=== PATIENT | female | born 1965 | race Caucasian/White ===

== ENCOUNTER 2018-05-17 19:40 | Inpatient (IN) ==
[2018-05-17] MEDS ORDERED: Ampicillin/Sulbactam Inj 3 GM in Sodium Chloride 0.9% Inj 100 ML IV.SIG ONE (19:52)
[2018-05-17] MEDS ORDERED: Diphtheria/Tetanus/Pertussis Vaccine Inj 0.5 ML Syringe IM ONE (19:52)
--- NOTE | 2018-05-17 20:02 | ED ---
HPI General Chief Complaint: Animal Bite Stated Complaint: EVAC/Dog Bite Time Seen by Provider: 05/17/18 19:50 History of Present Illness HPI narrative: Patient was attacked by her own dog sambull boxer mix. Her daughter apparently bit her in her forearm bilaterally she has a bracelet that she was wearing with the metal piece embedded deep into the flesh of her forearm and she has got multiple punctures and lacerations bilaterally on both arms she apparently is very intoxicated and appears to be either alcohol induced personality disorder because she is aggressive she is belligerent she is verbally abusive to staff she is not redirectable she is unaware of her medical situation and the severity of the risk of injury and tendon injury I will need to sedate her so we can manage and treat her limb threatening injuries I am giving her Haldol Benadryl Ativan and if that does not work we will be giving her ketamine as well she needs to be managed medically as well as then irrigated possibly admitted for debridement in the OR unable to evaluate her at all at this time because of her agitation and uncooperativeness ROS and HPI are difficult to assess because she is not cooperative all information is given to us by the paramedics Related Data Previous Rx's Medication Instructions Recorded amoxicillin-pot clavulanate 1 tab PO Q12H #28 tab 05/20/18 [Augmentin] folic acid 1 mg PO DAILY #30 tab 05/20/18 nxfbjzbm-fvyf-UZ-calcium-mins 1 tab PO DAILY #30 tab 05/20/18 [Thera M Plus (ferrous fumarat)] wblgtxlh-fozegswrkRn-stcpzrluR 1 applicatio TOPICAL BID #60 g 05/20/18 [Triple Antibiotic] oxycodone-acetaminophen 1 tab PO Q4H PRN #12 tab 05/20/18 thiamine HCl (vitamin B1) 100 mg PO DAILY #30 tab 05/20/18 Allergies Allergy/AdvReac Type Severity Reaction Status Date / Time No Known Allergies Allergy Unverified 05/18/18 01:06 Review of Systems ROS Unobtainable unobtainable due to mental condition and other (agitated agressive verbally abusive intoxicated ) PMFSH Social History Social History Substance History: No History of Abuse Second Hand Smoke Exposure: No Smoking Status: Current every day smoker Tobacco Type: E-Cigarettes How Often Do You Have a Drink Containing Alcohol: 2 to 3 times a week Recent Travel in [facility] within the Last 8 Weeks: No Recent Out of Country Travel within the Last 8 Weeks: No Immunization History Tetanus Immunization: <5 Years Hx Influenza Vaccine This Season: No Exam Narrative Exam Narrative: GENERAL: pt agitated agressive and uncooperative for exam needs medical restraint due to limb threatening injury to left arm open wounds with dog bite and FB SKIN 3 laceation to left arm with metal braclets imbedded into the dorsum of left forearm HEAD: Atraumatic. Normocephalic. EYES: Pupils equal and round. No scleral icterus. No injection or drainage. ENT: No nasal bleeding or discharge. Mucous membranes pink and moist. NECK: Trachea midline. No JVD. CARDIOVASCULAR: Regular rate and rhythm. RESPIRATORY: No accessory muscle use. Clear to auscultation. Breath sounds equal bilaterally. GASTROINTESTINAL: Abdomen soft, non-tender, nondistended. Hepatic and splenic margins not palpable. MUSCULOSKELETAL: Extremities left hand has 3 cm lac to dorsum with tendon exposure , left dorsum of mid forearm has metal braclet embeeded into skin stuck inside volar aspect has 4 cm tare forearm, Right foream has 7 cm lac to right proximla froearm extensor surface irregular NEUROLOGICAL: Awake and alert. No obvious cranial nerve deficits. Motor grossly within normal limits. Five out of 5 muscle strength in the arms and legs. Normal speech. PSYCHIATRIC: Appropriate mood and affect; insight and judgment normal. Course Initial Documented Vital Signs Temperature 98.7 F 05/17/18 19:49 Pulse Rate 102 H 05/17/18 19:49 Respiratory Rate 20 05/17/18 19:49 Blood Pressure 178/85 H 05/17/18 19:49 Pulse Oximetry 96 05/17/18 19:49 Last Documented Vital Signs Temperature 98.2 F 05/20/18 12:00 Pulse Rate 78 05/20/18 12:00 Respiratory Rate 16 05/20/18 12:00 Blood Pressure 170/86 H 05/20/18 12:00 Pulse Oximetry 96 05/20/18 12:00 Medical Decision Making [facility] Narrative Medical decision making narrative: pt is in need of medical sedation and her limb threatening injuries require immediate intervention impaled metal bracelet left arm dorsum tare wounds no irrigation, I attempted to remove metal embedded bracelet it seem stuck in bone or interosseum . I call doctor Tee she agrees to take pt to the OR to repir hand and remove impaled bracelet , ancef tetanus I repair the 7 cm laceration to the right arm but hand and FB left cleaned and covered with xeroform vasaline impregnated gauze the cling wrapped and admitted for OR Leyda ancef IV given teteanus up dated , Rabies not indicated, pt sedated with multiple meds before she is calm enough to treat Differential Diagnosis Differential Diagnosis: dog bite vs impaled arm from bracelet embedded , mutilated arms from repeated bites , also intoxicated agitated etoh induced psychotic disorder Lab Data Result diagrams: 05/20/18 07:49 05/20/18 07:49 Lab Results 05/18/18 05/18/18 05/18/18 Range/Units 01:45 01:45 01:45 WBC 18.6 H (4.0-11.0) th/mm3 RBC 4.31 (4.00-5.30) mil/mm3 Hgb 13.2 (11.6-15.3) gm/dL Hct 40.0 (35.0-46.0) % MCV 92.9 (80.0-100.0) fL MCH 30.5 (27.0-34.0) pg MCHC 32.9 (32.0-36.0) % RDW 13.7 (11.6-17.2) % Plt Count 364 (150-450) th/mm3 MPV 7.0 (7.0-11.0) fL Neut % (Auto) 89.5 H (16.0-70.0) % Lymph % (Auto) 5.5 L (9.0-44.0) % [place] % (Auto) 4.7 (0.0-8.0) % Eos % (Auto) 0.0 (0.0-4.0) % Baso % (Auto) 0.3 (0.0-2.0) % Neut # (Auto) 16.6 H (1.8-7.7) th/mm3 Lymph # (Auto) 1.0 (1.0-4.8) th/mm3 [place] # (Auto) 0.9 (0.0-0.9) th/mm3 Eos # (Auto) 0.0 (0.0-0.4) th/mm3 Baso # (Auto) 0.1 (0.0-0.2) th/mm3 WBC Differential . Differential Comment Auto diff final PT 10.4 (9.8-11.6) sec INR 1.0 Ratio Sodium 147 H (136-145) meq/L Potassium 3.9 (3.5-5.1) meq/L Chloride 112 H (98-107) meq/L Carbon Dioxide 21.7 (21.0-32.0) meq/L Anion Gap 13 (5-15) meq/L BUN 10 (7-18) mg/dL Creatinine 0.67 (0.50-1.00) mg/dL Estimated GFR Greater than 89 (>89) mL/min POC Glucose (68-110) mg/dl Random Glucose 117 H (74-106) mg/dL Calcium 7.8 L (8.5-10.1) mg/dL Phosphorus (2.5-4.9) mg/dL Magnesium (1.5-2.5) mg/dL Total Bilirubin 0.4 (0.2-1.0) mg/dL AST 27 (15-37) U/L ALT 28 (10-53) U/L Alkaline Phosphatase 114 (45-117) U/L Total Protein 7.4 (6.4-8.2) g/dL Albumin 3.8 (3.4-5.0) g/dL TSH (0.358-3.740) uIU/mL Free T4 (0.76-1.46) ng/dL Vancomycin Trough (5.0-10.0) mcg/mL 05/19/18 05/19/18 05/19/18 Range/Units 03:01 07:47 11:55 WBC (4.0-11.0) th/mm3 RBC (4.00-5.30) mil/mm3 Hgb (11.6-15.3) gm/dL Hct (35.0-46.0) % MCV (80.0-100.0) fL MCH (27.0-34.0) pg MCHC (32.0-36.0) % RDW (11.6-17.2) % Plt Count (150-450) th/mm3 MPV (7.0-11.0) fL Neut % (Auto) (16.0-70.0) % Lymph % (Auto) (9.0-44.0) % [place] % (Auto) (0.0-8.0) % Eos % (Auto) (0.0-4.0) % Baso % (Auto) (0.0-2.0) % Neut # (Auto) (1.8-7.7) th/mm3 Lymph # (Auto) (1.0-4.8) th/mm3 [place] # (Auto) (0.0-0.9) th/mm3 Eos # (Auto) (0.0-0.4) th/mm3 Baso # (Auto) (0.0-0.2) th/mm3 WBC Differential Differential Comment PT (9.8-11.6) sec INR Ratio Sodium (136-145) meq/L Potassium (3.5-5.1) meq/L Chloride (98-107) meq/L Carbon Dioxide (21.0-32.0) meq/L Anion Gap (5-15) meq/L BUN (7-18) mg/dL Creatinine (0.50-1.00) mg/dL Estimated GFR (>89) mL/min POC Glucose 113 H 109 97 (68-110) mg/dl Random Glucose (74-106) mg/dL Calcium (8.5-10.1) mg/dL Phosphorus (2.5-4.9) mg/dL Magnesium (1.5-2.5) mg/dL Total Bilirubin (0.2-1.0) mg/dL AST (15-37) U/L ALT (10-53) U/L Alkaline Phosphatase (45-117) U/L Total Protein (6.4-8.2) g/dL Albumin (3.4-5.0) g/dL TSH (0.358-3.740) uIU/mL Free T4 (0.76-1.46) ng/dL Vancomycin Trough (5.0-10.0) mcg/mL 05/19/18 05/19/18 05/20/18 Range/Units 13:49 15:45 07:49 WBC 14.5 H 11.0 (4.0-11.0) th/mm3 RBC 3.96 L 3.51 L (4.00-5.30) mil/mm3 Hgb 12.4 10.9 L (11.6-15.3) gm/dL Hct 37.2 33.0 L (35.0-46.0) % MCV 93.7 93.9 (80.0-100.0) fL MCH 31.3 31.0 (27.0-34.0) pg MCHC 33.4 33.0 (32.0-36.0) % RDW 13.5 13.6 (11.6-17.2) % Plt Count 320 302 (150-450) th/mm3 MPV 8.0 7.4 (7.0-11.0) fL Neut % (Auto) 80.5 H 76.8 H (16.0-70.0) % Lymph % (Auto) 13.5 16.7 (9.0-44.0) % [place] % (Auto) 5.4 5.5 (0.0-8.0) % Eos % (Auto) 0.2 0.7 (0.0-4.0) % Baso % (Auto) 0.4 0.3 (0.0-2.0) % Neut # (Auto) 11.7 H 8.5 H (1.8-7.7) th/mm3 Lymph # (Auto) 2.0 1.8 (1.0-4.8) th/mm3 [place] # (Auto) 0.8 0.6 (0.0-0.9) th/mm3 Eos # (Auto) 0.0 0.1 (0.0-0.4) th/mm3 Baso # (Auto) 0.1 0.0 (0.0-0.2) th/mm3 WBC Differential . . Differential Comment Auto diff final Auto diff final PT (9.8-11.6) sec INR Ratio Sodium (136-145) meq/L Potassium (3.5-5.1) meq/L Chloride (98-107) meq/L Carbon Dioxide (21.0-32.0) meq/L Anion Gap (5-15) meq/L BUN (7-18) mg/dL Creatinine (0.50-1.00) mg/dL Estimated GFR (>89) mL/min POC Glucose (68-110) mg/dl Random Glucose (74-106) mg/dL Calcium (8.5-10.1) mg/dL Phosphorus (2.5-4.9) mg/dL Magnesium (1.5-2.5) mg/dL Total Bilirubin (0.2-1.0) mg/dL AST (15-37) U/L ALT (10-53) U/L Alkaline Phosphatase (45-117) U/L Total Protein (6.4-8.2) g/dL Albumin (3.4-5.0) g/dL TSH (0.358-3.740) uIU/mL Free T4 (0.76-1.46) ng/dL Vancomycin Trough 5.8 (5.0-10.0) mcg/mL 05/20/18 05/20/18 05/20/18 Range/Units 07:49 07:49 07:49 WBC (4.0-11.0) th/mm3 RBC (4.00-5.30) mil/mm3 Hgb (11.6-15.3) gm/dL Hct (35.0-46.0) % MCV (80.0-100.0) fL MCH (27.0-34.0) pg MCHC (32.0-36.0) % RDW (11.6-17.2) % Plt Count (150-450) th/mm3 MPV (7.0-11.0) fL Neut % (Auto) (16.0-70.0) % Lymph % (Auto) (9.0-44.0) % [place] % (Auto) (0.0-8.0) % Eos % (Auto) (0.0-4.0) % Baso % (Auto) (0.0-2.0) % Neut # (Auto) (1.8-7.7) th/mm3 Lymph # (Auto) (1.0-4.8) th/mm3 [place] # (Auto) (0.0-0.9) th/mm3 Eos # (Auto) (0.0-0.4) th/mm3 Baso # (Auto) (0.0-0.2) th/mm3 WBC Differential Differential Comment PT 9.5 L (9.8-11.6) sec INR 0.9 Ratio Sodium 144 (136-145) meq/L Potassium 3.3 L (3.5-5.1) meq/L Chloride 109 H (98-107) meq/L Carbon Dioxide 23.0 (21.0-32.0) meq/L Anion Gap 12 (5-15) meq/L BUN 8 (7-18) mg/dL Creatinine 0.56 (0.50-1.00) mg/dL Estimated GFR Greater than 89 (>89) mL/min POC Glucose (68-110) mg/dl Random Glucose 82 (74-106) mg/dL Calcium 7.9 L (8.5-10.1) mg/dL Phosphorus 1.8 L (2.5-4.9) mg/dL Magnesium 2.0 (1.5-2.5) mg/dL Total Bilirubin 0.6 (0.2-1.0) mg/dL AST 15 (15-37) U/L ALT 17 (10-53) U/L Alkaline Phosphatase 87 (45-117) U/L Total Protein 6.2 L D (6.4-8.2) g/dL Albumin 2.6 L (3.4-5.0) g/dL TSH 3.750 H (0.358-3.740) uIU/mL Free T4 1.33 (0.76-1.46) ng/dL Vancomycin Trough (5.0-10.0) mcg/mL Imaging Data Radiologist's impression: Forearm X-Ray 05/17/18 00:00 CONCLUSION: Soft tissue injury. Fracture for review at the base of the ulnar styloid. The age of this deformity is not known. Forearm X-Ray 05/17/18 19:50 CONCLUSION: Soft tissue injury. Wrist X-Ray 05/18/18 00:00 CONCLUSION: Postsurgical changes as above. Discharge Plan Discharge Disposition Patient Disposition: 01 Discharge Home Discharge Condition Condition: Good Discharge Order Discharge Orders: Discharge Order (Routine); Ordered 05/20/18 Ordered By: Jose Alonzo Hand Surgery Clear for Discharge (Routine); Ordered 05/18/18 Ordered By: Lisa Oliveira Discharge Details Anticipated Discharge Date: 05/20/18 Physicians Team ED Provider: Tanvir Renteria Primary Care Provider: UNKNOWN, Attending Provider: Jose Alonzo Other Providers: Lisa Oliveira Status ED Status: Left Department Discharge Information Discharge Date/Time: 05/18/18 02:53
[2018-05-17] MEDS ORDERED: Haloperidol Inj 5 MG/ML Ampul IV.PUSH ONE (20:03)
[2018-05-17] MEDS ORDERED: Ketamine Inj 200 MG/20 ML Vial IV.PUSH ONE (20:05)
[2018-05-17] MEDS ORDERED: Ketamine Inj 50 MG/5 ML Syringe IV.PUSH SCH (20:15)
[2018-05-17] MEDS ORDERED: Lidocaine 2%/Epinephrine 1:100,000 30 ML MDV INFILTRATN ONE (20:31)
[2018-05-17] MEDS ORDERED: Lidocaine 1%/Epinephrine 1:100,000 Inj 20 ML Vial INFILTRATN ONE (20:34)
--- NOTE | 2018-05-17 21:19 | XR ---
EXAM DATE: 05/17/2018 9:14 PM EDT AGE/SEX: 52 years / Female INDICATIONS: Right forearm lacerations CLINICAL DATA: This is the patient's initial encounter. Patient reports that signs and symptoms have been present for 1 day and indicates a pain score of Nonresponsive. MEDICAL/SURGICAL HISTORY: Non-responsive. Non-responsive. COMPARISON: No prior exams available for comparison. FINDINGS: No fracture is seen. The elbow and wrist joints are normally aligned. There appears to be a soft tiss ue injury at the proximal forearm with air seen in the posterior proximal soft tissues. No foreign masha dy is seen. CONCLUSION: Soft tissue injury. Electronically signed by: Zac Méndez MD 05/17/2018 9:18 PM EDT
--- NOTE | 2018-05-17 22:13 | XR ---
EXAM DATE: 05/17/2018 10:07 PM EDT AGE/SEX: 52 years / Female INDICATIONS: Left Forearm Laceration due to Dog Bite, Bracelet embedded into wrist CLINICAL DATA: This is the patient's initial encounter. Patient reports that signs and symptoms have been present for 1 day and indicates a pain score of Nonresponsive. MEDICAL/SURGICAL HISTORY: Non-responsive. Non-responsive. COMPARISON: No prior exams available for comparison. FINDINGS: There is a defect seen at the base of the ulnar styloid. The age of this deformity is not known. Ther e is soft tissue swelling seen in the mid and distal anterior lateral forearm. There is small amount of air seen in the soft tissues. The elbow and wrist joints are all aligned. CONCLUSION: Soft tissue injury. Fracture for review at the base of the ulnar styloid. The age of this deformity is not known. Electronically signed by: Zac Méndez MD 05/17/2018 10:12 PM EDT
[2018-05-17] MEDS ORDERED: Clindamycin 600 mg/NS Premix 600 MG/50 ML PIGGYBACK IV.SIG ONE (22:32)
[2018-05-18] MEDS ORDERED: Morphine Inj 4 MG/ML Vial IV.PUSH ONE (00:25)
[2018-05-18] MEDS ORDERED: Ampicillin/Sulbactam Inj 3 GM in Sodium Chloride 0.9% Inj 100 ML IV.SIG ONE (01:09)
[2018-05-18] MEDS ORDERED: Acetaminophen 325 MG Tablet PO PRN (01:39)
[2018-05-18] MEDS ORDERED: Haloperidol Inj 5 MG/ML Ampul IV.PUSH PRN (01:39)
[2018-05-18] MEDS ORDERED: LORazepam 1 MG Tablet PO PRN (01:39)
[2018-05-18] MEDS ORDERED: Temazepam 15 MG Capsule PO PRN (01:39)
[2018-05-18] MEDS ORDERED: Bisacodyl 10 MG Supp RECTAL PRN (01:39)
[2018-05-18] MEDS ORDERED: Vancomycin Consult Pharmacy 1 EACH OTHER SCH (01:39)
[2018-05-18] MEDS: Sod Chloride 0.9% Inj 1,000 ML IV.CONT SCH ×3 (01:52→21:01)
[2018-05-18 01:55] LABS: Baso # (Auto) 0.1 th/mm3 (0.0-0.2); Baso % (Auto) 0.3 % (0.0-2.0); Hemoglobin 13.2 gm/dL (11.6-15.3); Lymph % (Auto) 5.5 % (9.0-44.0); Mean Corpuscular HGB Conc 32.9 % (32.0-36.0); Mean Corpuscular Hemoglobin 30.5 pg (27.0-34.0); Mean Corpuscular Volume 92.9 fL (80.0-100.0); Mono # (Auto) 0.9 th/mm3 (0.0-0.9); Mono % (Auto) 4.7 % (0.0-8.0); Neut # (Auto) 16.6 th/mm3 (1.8-7.7); Neut % (Auto) 89.5 % (16.0-70.0); Platelet Count 364 th/mm3 (150-450); Red Blood Count 4.31 mil/mm3 (4.00-5.30); Red Cell Distribution Width 13.7 % (11.6-17.2); White Blood Count 18.6 th/mm3 (4.0-11.0)
[2018-05-18 02:07] LABS: Prothrombin Time 10.4 sec (9.8-11.6)
[2018-05-18 02:18] LABS: Alkaline Phosphatase 114 U/L (45-117); Total Protein 7.4 g/dL (6.4-8.2)
[2018-05-18 02:22] LABS: Alanine Aminotransferase 28 U/L (10-53); Albumin 3.8 g/dL (3.4-5.0); Anion Gap 13 meq/L (5-15); Aspartate Aminotransferase 27 U/L (15-37); Blood Urea Nitrogen 10 mg/dL (7-18); Calcium 7.8 mg/dL (8.5-10.1); Carbon Dioxide 21.7 meq/L (21.0-32.0); Chloride 112 meq/L (98-107); Glomerular Filtration Rate Greater Than 89 mL/min (>89); Glucose,Random 117 mg/dL (74-106); Potassium 3.9 meq/L (3.5-5.1); Sodium 147 meq/L (136-145)
--- NOTE | 2018-05-18 02:24 | P.HPIM ---
History of Present Illness Primary Care Physician: UNKNOWN History of Present Illness: This is a 52-year-old female with no significant PMH who presents the ER after dog bite to left forearm and hand. Patient is acutely intoxicated and belligerent on arrival, now calm after receiving Haldol and Ketamine. Pt was apparently bitten by her own dog, pitbull/boxer mix earlier this evening. Reports dog is up to date on vaccinations. On arrival, BP 178/85, HR 102, O2 sat 96% on RA, Afebrile. WBC 18.6. Chemistry pending. Forearm X-ray with soft tissue injury. On exam. pt noted to have laceration to left hand and metal bracelet embedded into left forearm at site of dog bite. Hand Sx consulted, plan for surgical intervention. - Diagnosis (1) Dog bite (2) Alcohol intoxication (3) Leukocytosis Inpatient Certification: I certify that the inpatient services were ordered in accordance with Medicare regulations governing the order. This includes certification that hospital inpatient services are reasonable and necessary and in the case of services not specified as inpatient-only under 42 CFR 419.22(n), that they are appropriately provided as inpatient services in accordance to with the 2-midnight benchmark under 43 CFR 412.3(e) Estimated Total Length of Stay (Days): 2 Plans for Post Hospital Care: Not yet determined Review of Systems All other systems reviewed negative except as stated in HPI PMFSH - History History Provided By: Patient - Tobacco History Second Hand Smoke Exposure: No Tobacco Use In Past 30 Days: Yes Smoking Status: Current every day smoker Tobacco Type: Cigarettes - Alcohol History How Often Do You Have a Drink Containing Alcohol: 2 to 3 times a week - Substance Use History Substance History: No History of Abuse - Travel History Recent Travel in the [place] Within the Last 8 Weeks: No Recent Travel Out of the Country Within the Last 8 Weeks: No - Immunization History Tetanus Immunization: <5 Years Hx Influenza Vaccine This Season: No Medications and Allergies Active Medications: Active Medications Acetaminophen (Tylenol) 650 mg PO Q4H PRN PRN Reason: Temp > 100.4 Al Hydroxide/Mg Hydroxide (Milk Of Magnesia Liq) 30 ml PO Q12H PRN PRN Reason: Mild Constipation Bisacodyl (Dulcolax Supp) 10 mg RECTAL DAILY PRN PRN Reason: SEVERE CONSITIPATION Flumazenil (Romazecon Inj) 0.2 mg IV.PUSH Q1M PRN PRN Reason: OVERSEDATION Folic Acid (Folic Acid) 1 mg PO DAILY [facility] Stop: 05/23/18 08:59 Haloperidol Lactate (Haldol Inj) 1 mg IV.PUSH Q15M PRN PRN Reason: for severe agitation Ampicillin Sodium/Sulbactam (Sodium 3 gm/ Sodium Chloride) 100 mls @ 200 mls/ hr IV.SIG Q6H [facility] Sodium Chloride (Ns Inj) 1,000 mls @ 100 mls/hr IV.CONT .Q10H [facility] Last Admin: 05/18/18 01:52 Dose: 100 mls/hr Pharmacy Profile Note (Vancomycin Consult Pharmacy) 0 mls @ 0 mls/hr OTHER UNSCH [facility] Vancomycin HCl 1,500 mg/ (Sodium Chloride) 515 mls @ 257.5 mls/hr IV.SIG ONCE ONE Stop: 05/18/18 04:29 Lactulose (Lactulose Liq) 30 ml PO DAILY PRN PRN Reason: SEVERE CONSITIPATION Lorazepam (Ativan) 1 mg PO Q4H PRN PRN Reason: for CIWA 8-10 Lorazepam (Ativan) 2 mg PO Q2H PRN PRN Reason: for CIWA 11-14 Lorazepam (Ativan Inj) 2 mg IV.PUSH Q2H PRN PRN Reason: for CIWA 11-14 Lorazepam (Ativan Inj) 2 mg IV.PUSH Q1H PRN PRN Reason: for CIWA 15-20 Lorazepam (Ativan Inj) 2 mg IV.PUSH Q15M PRN PRN Reason: for CIWA > 20 Lorazepam (Ativan Inj) 1 mg IV.PUSH Q4H PRN PRN Reason: for CIWA 8-10 Metoclopramide HCl (Reglan Inj) 5 mg IV.PUSH Q6HR PRN; Protocol PRN Reason: NAUSEA OR VOMITING Multivitamins/Minerals (Theragran-M) 1 tab PO DAILY [facility] Stop: 05/23/18 08:59 Senna/Docusate Sodium (Sydney-Colace) 1 tab PO BID [facility] Sennosides (Senokot) 17.2 mg PO Q12H PRN PRN Reason: Moderate Constipation Temazepam (Restoril) 15 mg PO HS PRN PRN Reason: INSOMNIA Thiamine HCl (Vitamin B1) 100 mg PO DAILY [facility] Allergies Allergy/AdvReac Type Severity Reaction Status Date / Time No Known Allergies Allergy Unverified 05/18/18 01:06 Home Medications Medication Instructions Recorded Confirmed Type No Known Home Medications 05/17/18 05/17/18 History Exam Vital signs: Vital Signs 05/17/18 19:49 05/17/18 20:30 05/17/18 21:43 Temperature 98.7 F Pulse Rate 102 H 119 H 90 Respiratory Rate 20 14 14 Blood Pressure 178/85 H 182/79 H 194/87 H Pulse Oximetry 96 90 L 98 05/18/18 00:44 Temperature Pulse Rate 85 Respiratory Rate 14 Blood Pressure 148/71 H Pulse Oximetry 97 Intake & Output 05/17/18 05/17/18 05/18/18 06:59 18:59 06:59 Intake Total 250 / 250 Balance 250 / 250 Weight 63.503 kg Intake: IV 250 / 250 Unasyn Inj 3 GM In NS Inj 100 100 / 100 ML @ 200 mls/hr IV.SIG ONCE ONE Rx#:[id number] Cleocin 600 mg/NS Premix 600 mg 50 / 50 In 50 ml @ 100 mls/hr IV.SIG ONCE ONE Rx#:[id number] Flagyl 500 MG Inj 100 ML @ 100 100 / 100 mls/hr IV.SIG ONCE ONE Rx#: [id number] Narrative: PE: GENERAL: Middle-aged white female in no acute distress, currently,. HEENT: PERRLA, EOMI. No scleral icterus or conjunctival pallor. No lid lag or facial droop. CARDIOVASCULAR: Regular rate and rhythm. No obvious murmurs to auscultation. No chest tenderness to palpation. RESPIRATORY: No obvious rhonchi or wheezing. Clear to auscultation. Breath sounds equal bilaterally. GASTROINTESTINAL: Abdomen soft, non-tender, nondistended. BS normal. MUSCULOSKELETAL: Extremities without clubbing, cyanosis, or edema. No obvious deformities. LUE w/ metal bracelet embedded into forearm, left hand laceration , significant swelling. Pulses intact. NEUROLOGICAL: Awake, alert and oriented x4. No focal neurologic deficits. Moving both upper and lower extremities spontaneously. Results - Labs CBC & Chem 7: 05/18/18 01:45 05/18/18 01:45 Labs: Short CBC 05/18/18 Range/Units 01:45 WBC 18.6 H (4.0-11.0) th/mm3 Hgb 13.2 (11.6-15.3) gm/dL Hct 40.0 (35.0-46.0) % Plt Count 364 (150-450) th/mm3 - Imaging Impressions Forearm X-Ray 05/17/18 00:00 CONCLUSION: Soft tissue injury. Fracture for review at the base of the ulnar styloid. The age of this deformity is not known. Forearm X-Ray 05/17/18 19:50 CONCLUSION: Soft tissue injury. Caprini VTE Risk Assessment Caprini VTE Risk Assessment: No/Low Risk (score <= 1) Caprini Risk Assessment Model: Point Value = 1 Point Value = 2 Point Value = 3 Point Value = 5 Age 41-60 Minor surgery BMI > 25 kg/m2 Swollen legs Varicose veins or History of unexplained or recurrent spontaneous Oral contraceptives or hormone replacement Sepsis (< 1 month) Serious lung disease, including pneumonia (< 1 month) Abnormal pulmonary function Acute myocardial infarction Congestive heart failure (< 1 month) History of inflammatory bowel disease Medical patient at bed rest Age 61-74 Arthroscopic surgery Major open surgery (> 45 min) Laparoscopic surgery (> 45 min) Malignancy Confined to bed (> 72 hours) Immobilizing plaster cast Central venous access Age >= 75 History of VTE Family history of VTE Factor V Leiden Prothrombin [id number] Lupus anticoagulant Anticardiolipin antibodies Elevated serum homocysteine Heparin-induced thrombocytopenia Other congenital or acquired thrombophilia Stroke (< 1 month) Elective arthroplasty Hip, pelvis, or leg fracture Acute spinal cord injury (< 1 month) Prophylaxis Regimen: Total Risk Factor Score Risk Level Prophylaxis Regimen 0-1 Low Early ambulation 2 Moderate Order ONE of the following: *Sequential Compression Device (SCD) *Heparin 5000 units SQ BID 3-4 Higher Order ONE of the following medications: *Heparin 5000 units SQ TID *Enoxaparin/Lovenox 40 mg SQ daily (WT < 150 kg, CrCl > 30 mL/min) *Enoxaparin/Lovenox 30 mg SQ daily (WT < 150 kg, CrCl > 10-29 mL/min) *Enoxaparin/Lovenox 30 mg SQ BID (WT < 150 kg, CrCl > 30 mL/min) AND/OR *Sequential Compression Device (SCD) 5 or more Highest Order ONE of the following medications: *Heparin 5000 units SQ TID (Preferred with Epidurals) *Enoxaparin/Lovenox 40 mg SQ daily (WT < 150 kg, CrCl > 30 mL/min) *Enoxaparin/Lovenox 30 mg SQ daily (WT < 150 kg, CrCl > 10-29 mL/min) *Enoxaparin/Lovenox 30 mg SQ BID (WT < 150 kg, CrCl > 30 mL/min) AND *Sequential Compression Device (SCD) Assessment and Plan - Assessment (1) Dog bite Code(s): W54.0XXA - Bitten by dog, initial encounter Status: Acute (2) Alcohol intoxication Code(s): F10.929 - Alcohol use, unspecified with intoxication, unspecified Status: Acute (3) Leukocytosis Code(s): D72.829 - Elevated white blood cell count, unspecified Status: Acute - Plan A/P: 1. Dog Bite: s/p dog bite by her dog, reports up to date on vaccinations, + left hand laceration w/ significant swelling and left forearm injury w/ metal bracelet embedded. X-ray w/ soft tissue injury, images reviewed by me. Hand Sx consulted, plan for surgical intervention. NPO, analgesics/antiemetics. Unasyn/Vanc, IVF for hydration. 2. Alcohol Intoxication: belligerent/uncooperative on arrival, now calm after Haldol/Ketamine, CIWA, Seizure Precautions, MVT/Thiamine/Folate replacement. 3. DVT Prophylaxis: SCD/Teds 4. Social work for d/c planning as needed. 5. Case discussed w/ ER physician at length, labs/records/imaging reviewed by me.
[2018-05-18] MEDS ORDERED: Vancomycin Inj 1,500 MG in Sodium Chlor 0.9% Inj 500 ML IV.SIG ONE (02:30)
[2018-05-18] MEDS: Multivitamin/Minerals Therapeutic Tablet PO SCH (08:30)
[2018-05-18] MEDS: Ampicillin/Sulbactam Inj 3 GM in Sodium Chloride 0.9% Inj 100 ML IV.SIG SCH ×3 (08:30→21:00)
[2018-05-18] MEDS: Folic Acid 1 MG Tablet PO SCH (08:30)
[2018-05-18] MEDS: Senna/Docusate Sodium 8.6/50 MG Tablet PO SCH ×2 (08:30→21:00)
[2018-05-18] MEDS ORDERED: Lidocaine PF 1% Inj 5 ML Syringe INFILTRATN ONE (12:00)
[2018-05-18] MEDS ORDERED: Neomycin/Polymyxin G.U. Irrigant 1 ML Ampul ONE (12:34)
[2018-05-18] MEDS ORDERED: Lidocaine PF 2% Inj 10 ML Ampul ONE ×2 (12:38→13:02)
[2018-05-18] MEDS ORDERED: fentaNYL Citrate Inj 100 MCG/2 ML Ampul ONE (13:37)
--- NOTE | 2018-05-18 14:19 | XR ---
EXAM DATE: 05/18/2018 2:06 PM EDT AGE/SEX: 52 years / Female INDICATIONS: Post op wrist surgery. Foreign body. CLINICAL DATA: This is the patient's initial encounter. Patient reports that signs and symptoms have been present for 1 day and indicates a pain score of 0/10. MEDICAL/SURGICAL HISTORY: None. None. COMPARISON: C, FOREARM LEFT 2V, 05/16/2018. . FINDINGS: Ulnar styloid fracture is present No foreign body is identified. Joint spaces are maintained. CONCLUSION: Postsurgical changes as above. Electronically signed by: Biju Emerson MD 05/18/2018 2:17 PM EDT
--- NOTE | 2018-05-18 14:54 | MB ---
cc: Lisa Oliveira MD DATE: 05/18/2018 REASON FOR CONSULTATION: Retained foreign body left wrist, as well as multiple dog bite lacerations left forearm, wrist, and hand. HISTORY OF PRESENT ILLNESS: Malou Armendariz is a 52-year-old right-hand dominant female who states that her dog bit bilateral arms yesterday evening. She was brought to the emergency room. She was intoxicated at the time. She had multiple wounds of her bilateral forearms. The emergency room, irrigated and closed the wounds on the right forearm. Her bracelet became lodged into her left wrist and was unable to be removed by the emergency room physician. She denied any paresthesias of the left hand. She reports diffuse pain over the left hand and upper extremity. She denies any prior problems to the left hand. PAST MEDICAL HISTORY: Unknown. PAST SURGICAL HISTORY: Unknown. SOCIAL HISTORY: The patient smokes daily. Significant alcohol use. Denies any drug use. PHYSICAL EXAMINATION: The patient is alert and oriented. Exam of left upper extremity shows good capillary refill to the fingers. The patient is able to flex and extend her fingers gently with pain. Compartments are soft and compressible. There are multiple lacerations over the left hand and left forearm, the largest being over the volar aspect of the left forearm, the dorsal aspect of the left hand over the 4th metacarpal, as well as retained metallic bracelet foreign body embedded in the left wrist with a laceration over the ulnar border of the left wrist. Sensation grossly intact in the median, ulnar and radial distribution. X-RAY: X-ray shows the retained foreign body over the left wrist. No evidence of acute fracture or dislocation. Possible old ulnar styloid fracture. ASSESSMENT AND PLAN: A 52-year-old female with multiple dog bite wounds to the bilateral upper extremities. The right upper extremity was repaired well by the emergency room. Again, there were several large wounds over the left forearm, as well as retained foreign body over the left wrist. The patient elected to proceed with surgical intervention. Risks were explained, which were not limited to wound complications, infection, paresthesias, pain, stiffness, need for additional surgeries and she elected to proceed at the earliest available time. Lisa Oliveira MD [facility]/TL , 01:43 PM , 02:52 PM SONIA
--- NOTE | 2018-05-18 15:06 | MP ---
cc: Lisa Oliveira MD DATE OF OPERATION: PREOPERATIVE DIAGNOSES: 1. Dog bite with multiple lacerations over left hand and forearm. 2. Retained foreign body, left wrist. POSTOPERATIVE DIAGNOSES: 1. Dog bite with multiple lacerations over left forearm, wrist, and hand. 2. Retained foreign body, left wrist. 3. Partial longitudinal laceration extensor tendon, left hand. PROCEDURES: 1. Removal of retained foreign body, left wrist. 2. Exploration of penetrating wounds, left hand and forearm. 3. Repair of partial laceration to the extensor tendon of the left ring finger. 4. Irrigation and debridement of open wounds including skin, subcutaneous tissue, muscle over the left forearm and left hand. 5. Complex closure of wounds measuring approximately 5 cm left forearm. SURGEON: Lisa Oliveira MD ANESTHESIA: General and local. TOURNIQUET TIME: 2 minutes at 200 mmHg. INDICATIONS FOR PROCEDURE: Malou Armendariz is a 52-year-old right-hand dominant female that sustained multiple lacerations on bilateral upper extremities from a dog bite and the right upper extremity was repaired in the emergency room. The patient was brought to the operating room for removal of the retained foreign body of the left wrist. She also elected to proceed with the exploration of the penetrating wounds, repair of any injured structures and she elected to proceed. Risks were explained, which were not limited to wound complications, infection, stiffness, pain, paresthesias, need for additional surgery and she elected to proceed. DESCRIPTION OF PROCEDURE: The patient was identified in the preoperative holding and the correct extremity was marked. The patient was taken to the operating room. Anesthesia was induced. Left upper extremity was prepped and draped in normal sterile fashion. The bracelet retained metallic foreign body was removed in its entirety without complication. This was confirmed under fluoroscopy. Next, the large wounds over the volar forearm, the ulnar side of the wrist and the dorsum of the hand were extended and explored. Irrigation and debridement was performed using antibiotic saline and rongeurs. There was no injury to any deep structures over the volar forearm or ulnar wrist. There was partial longitudinal laceration of the extensor tendon over the left ring finger, which was repaired with PDS. The remainder of the wounds were closed with Monocryl and Nylon. 2% lidocaine without epinephrine was used for local anesthesia. The patient was placed in a soft dressing and awoken from anesthesia without any complications. She will be discharged on antibiotics per the primary team. She should return to the emergency room for suture removal in approximately 2 weeks. Lisa Oliveira MD [facility]/KARISHMA , 01:47 PM , 03:04 PM SONIA
[2018-05-18] MEDS: Vancomycin Inj 750 MG in Sodium Chlor 0.9% Inj 250 ML IV.SIG SCH (17:25)
[2018-05-19] MEDS: Ampicillin/Sulbactam Inj 3 GM in Sodium Chloride 0.9% Inj 100 ML IV.SIG SCH ×4 (01:56→21:16)
[2018-05-19] MEDS: Vancomycin Inj 750 MG in Sodium Chlor 0.9% Inj 250 ML IV.SIG SCH ×2 (04:17→17:12)
[2018-05-19] MEDS: Folic Acid 1 MG Tablet PO SCH (08:43)
[2018-05-19] MEDS: Multivitamin/Minerals Therapeutic Tablet PO SCH (08:44)
[2018-05-19] MEDS: Senna/Docusate Sodium 8.6/50 MG Tablet PO SCH ×2 (08:47→21:24)
[2018-05-19] MEDS: Sod Chloride 0.9% Inj 1,000 ML IV.CONT SCH ×2 (11:40→21:15)
--- NOTE | 2018-05-19 12:33 | P.PNIM ---
Subjective Interval history: This is a 52-year-old female with no significant PMH who presents the ER after dog bite to left forearm and hand. Patient is acutely intoxicated and belligerent on arrival, now calm after receiving Haldol and Ketamine. Pt was apparently bitten by her own dog, pitbull/boxer mix earlier this evening. Reports dog is up to date on vaccinations. On arrival, BP 178/85, HR 102, O2 sat 96% on RA, Afebrile. WBC 18.6. Chemistry pending. Forearm X-ray with soft tissue injury. On exam. pt noted to have laceration to left hand and metal bracelet embedded into left forearm at site of dog bite. Hand Sx consulted, plan for surgical intervention. 05-19 HAD SURGERY WITH HAD SURGERY ON LEFT HAND YESTERDAY CONTINUE ANTIBIOTICS DW RN AND PT AND CM CONTINUE PT AND OT WILL NEED FOLLOW UP Physical Exam Vital signs: Vital Signs 05/18/18 13:30 05/18/18 13:45 05/18/18 14:00 Temperature 97.9 F 98.5 F Pulse Rate 97 H 81 84 Respiratory Rate 22 20 19 Blood Pressure 146/90 H 158/72 H 153/68 H Pulse Oximetry 93 L 93 L 96 05/18/18 20:00 05/19/18 00:00 05/19/18 04:00 Temperature 98.6 F 99.3 F 98.3 F Pulse Rate 74 78 73 Respiratory Rate 18 18 18 Blood Pressure 154/67 H 141/63 H 135/63 Pulse Oximetry 93 L 93 L 95 05/19/18 08:00 Temperature 98.2 F Pulse Rate 68 Respiratory Rate 16 Blood Pressure 155/69 H Pulse Oximetry 93 L Intake & Output 05/18/18 05/19/18 05/19/18 18:59 06:59 18:59 Intake Total 2150 / 2150 1440 / 1440 1350 / 1350 Output Total 20 / 20 800 / 800 Balance 2130 / 2130 640 / 640 1350 / 1350 Weight 64.8 kg Intake: IV 1450 / 1450 1200 / 1200 1350 / 1350 NS Inj 1,000 ML @ 100 mls/hr IV 1000 / 1000 1000 / 1000 1000 / 1000 .CONT .Q10H MANNY Rx#:[id number] Unasyn Inj 3 GM In NS Inj 100 200 / 200 200 / 200 100 / 100 ML @ 200 mls/hr IV.SIG Q6H MANNY Rx#:[id number] Vancomycin Inj 750 MG In NS Inj 250 / 250 250 / 250 250 ML @ 250 mls/hr IV.SIG Q12H MANNY Rx#:[id number] Oral 0 / 0 240 / 240 Anesthesia Amount 700 / 700 Output: Urine 0 / 0 800 / 800 Estimated Blood Loss 20 / 20 Other: # Voids 4 # Bowel Movements 1 0 Narrative: GENERAL: AWAKE ALERT AND ORIENTED X3 TALKATIVE AND SOMEWHAT COOPERATIVE--WANTS TO GO HOME SKIN: Warm and dry.LEFT AND RIGHT HANDS ARE DRESSED- MULTIPLE SMALL WOUNDS ON LOWER EXTREMITIES HEAD: Atraumatic. Normocephalic. EYES: Pupils equal and round. No scleral icterus. No injection or drainage. ENT: No nasal bleeding or discharge. Mucous membranes pink and moist. NECK: Trachea midline. No JVD. CARDIOVASCULAR: Regular rate and rhythm. S1, S2 NO S3 OR SR RESPIRATORY: No accessory muscle use. Clear to auscultation. Breath sounds equal bilaterally. GASTROINTESTINAL: Abdomen soft, non-tender, nondistended. Hepatic and splenic margins not palpable. MUSCULOSKELETAL: Extremities without clubbing, cyanosis, or edema. No obvious deformities. BL HANDS DRESSED NEUROLOGICAL: Awake and alert. No obvious cranial nerve deficits. Motor grossly within normal limits. 4 out of 5 muscle strength in the arms 5/5 IN LEGSand legs. Normal speech. PSYCHIATRIC: Appropriate mood and affect; insight and judgment normal. Results - Labs CBC & Chem 7: 05/18/18 01:45 05/18/18 01:45 Laboratory Results - last 24 hr 05/19/18 05/19/18 05/19/18 03:01 07:47 11:55 POC Glucose 113 H 109 97 - Imaging Impressions Wrist X-Ray 05/18/18 00:00 CONCLUSION: Postsurgical changes as above. - Procedures - 1. Dog bite with multiple lacerations over left hand and forearm. 2. Retained foreign body, left wrist. POSTOPERATIVE DIAGNOSES: 1. Dog bite with multiple lacerations over left forearm, wrist, and hand. 2. Retained foreign body, left wrist. 3. Partial longitudinal laceration extensor tendon, left hand. PROCEDURES: 1. Removal of retained foreign body, left wrist. 2. Exploration of penetrating wounds, left hand and forearm. 3. Repair of partial laceration to the extensor tendon of the left ring finger. 4. Irrigation and debridement of open wounds including skin, subcutaneous tissue, muscle over the left forearm and left hand. 5. Complex closure of wounds measuring approximately 5 cm left forearm. SURGEON: Lisa Oliveira MD ANESTHESIA: General and local. TOURNIQUET TIME: 2 minutes at 200 mmHg. INDICATIONS FOR PROCEDURE: Malou Armendariz is a 52-year-old right-hand dominant female that sustained multiple lacerations on bilateral upper extremities from a dog bite and the right upper extremity was repaired in the emergency room. The patient was brought to the operating room for removal of the retained foreign body of the left wrist. She also elected to proceed with the exploration of the penetrating wounds, repair of any injured structures and she elected to proceed. Risks were explained, which were not limited to wound complications, infection, stiffness, pain, paresthesias, need for additional surgery and she elected to proceed. DESCRIPTION OF PROCEDURE: The patient was identified in the preoperative holding and the correct extremity was marked. The patient was taken to the operating room. Anesthesia was induced. Left upper extremity was prepped and draped in normal sterile fashion. The bracelet retained metallic foreign body was removed in its entirety without complication. This was confirmed under fluoroscopy. Next, the large wounds over the volar forearm, the ulnar side of the wrist and the dorsum of the hand were extended and explored. Irrigation and debridement was performed using antibiotic saline and rongeurs. There was no injury to any deep structures over the volar forearm or ulnar wrist. There was partial longitudinal laceration of the extensor tendon over the left ring finger, which was repaired with PDS. The remainder of the wounds were closed with Monocryl and Nylon. 2% lidocaine without epinephrine was used for local anesthesia. The patient was placed in a soft dressing and awoken from anesthesia without any complications. She will be discharged on antibiotics per the primary team. She should return to the emergency room for suture removal in approximately 2 weeks. Lisa Oliveira MD Assessment and Plan - Assessment (1) Dog bite Code(s): W54.0XXA - Bitten by dog, initial encounter Status: Acute (2) Alcohol intoxication Code(s): F10.929 - Alcohol use, unspecified with intoxication, unspecified Status: Acute (3) Leukocytosis Code(s): D72.829 - Elevated white blood cell count, unspecified Status: Acute - Plan 1. Dog Bite: s/p dog bite by her dog, reports up to date on vaccinations, + left hand laceration w/ significant swelling and left forearm injury w/ metal bracelet embedded. X-ray w/ soft tissue injury, images reviewed by me. Hand Sx consulted, plan for surgical intervention. NPO, analgesics/antiemetics. Unasyn/Vanc, IVF for hydration. 2. Alcohol Intoxication: belligerent/uncooperative on arrival, now calm after Haldol/Ketamine, CIWA, Seizure Precautions, MVI/Thiamine/Folate replacement. 3. DVT Prophylaxis: SCD/Teds 4. Social work for d/c planning as needed. WILL NEED HELP WITH ANTIBIOTICS HOLD DC TODAY CONTINUE ON CURRENT ANTIBIOTICS HOPEFULLY SWITCH TO PO ANTIBIOTICS TOMORROW Code Status: FULL CODE Discussed Condition With: RN AND PT AND CM Discharge Planning: NEXT 24 TO 48 HOURS
[2018-05-19 14:36] LABS: Baso # (Auto) 0.1 th/mm3 (0.0-0.2); Baso % (Auto) 0.4 % (0.0-2.0); Eos % (Auto) 0.2 % (0.0-4.0); Hematocrit 37.2 % (35.0-46.0); Hemoglobin 12.4 gm/dL (11.6-15.3); Lymph % (Auto) 13.5 % (9.0-44.0); Mean Corpuscular HGB Conc 33.4 % (32.0-36.0); Mean Corpuscular Hemoglobin 31.3 pg (27.0-34.0); Mean Corpuscular Volume 93.7 fL (80.0-100.0); Mono # (Auto) 0.8 th/mm3 (0.0-0.9); Mono % (Auto) 5.4 % (0.0-8.0); Neut # (Auto) 11.7 th/mm3 (1.8-7.7); Neut % (Auto) 80.5 % (16.0-70.0); Platelet Count 320 th/mm3 (150-450); Red Blood Count 3.96 mil/mm3 (4.00-5.30); Red Cell Distribution Width 13.5 % (11.6-17.2); White Blood Count 14.5 th/mm3 (4.0-11.0)
[2018-05-19] MEDS ORDERED: Pharmacy Ordered Lab Info OTHER ONE (15:45)
[2018-05-20] MEDS ORDERED: Vancomycin Inj 900 MG in Sodium Chlor 0.9% Inj 250 ML IV.SIG SCH (04:00)
[2018-05-20] MEDS: Ampicillin/Sulbactam Inj 3 GM in Sodium Chloride 0.9% Inj 100 ML IV.SIG SCH ×3 (04:03→15:13)
[2018-05-20] MEDS: Sod Chloride 0.9% Inj 1,000 ML IV.CONT SCH (04:22)
[2018-05-20] MEDS: Senna/Docusate Sodium 8.6/50 MG Tablet PO SCH (08:16)
[2018-05-20] MEDS: Folic Acid 1 MG Tablet PO SCH (08:17)
[2018-05-20] MEDS: Multivitamin/Minerals Therapeutic Tablet PO SCH (08:17)
[2018-05-20 08:27] LABS: Baso % (Auto) 0.3 % (0.0-2.0); Eos # (Auto) 0.1 th/mm3 (0.0-0.4); Eos % (Auto) 0.7 % (0.0-4.0); Hemoglobin 10.9 gm/dL (11.6-15.3); Lymph # (Auto) 1.8 th/mm3 (1.0-4.8); Lymph % (Auto) 16.7 % (9.0-44.0); Mean Corpuscular Volume 93.9 fL (80.0-100.0); Mean Platelet Volume 7.4 fL (7.0-11.0); Mono # (Auto) 0.6 th/mm3 (0.0-0.9); Mono % (Auto) 5.5 % (0.0-8.0); Neut # (Auto) 8.5 th/mm3 (1.8-7.7); Neut % (Auto) 76.8 % (16.0-70.0); Platelet Count 302 th/mm3 (150-450); Red Blood Count 3.51 mil/mm3 (4.00-5.30); Red Cell Distribution Width 13.6 % (11.6-17.2)
[2018-05-20 08:38] LABS: INR 0.9 Ratio; Prothrombin Time 9.5 sec (9.8-11.6)
[2018-05-20 09:04] LABS: Alanine Aminotransferase 17 U/L (10-53); Albumin 2.6 g/dL (3.4-5.0); Anion Gap 12 meq/L (5-15); Aspartate Aminotransferase 15 U/L (15-37); Blood Urea Nitrogen 8 mg/dL (7-18); Calcium 7.9 mg/dL (8.5-10.1); Chloride 109 meq/L (98-107); Glomerular Filtration Rate Greater Than 89 mL/min (>89); Glucose,Random 82 mg/dL (74-106); Potassium 3.3 meq/L (3.5-5.1); Sodium 144 meq/L (136-145)
[2018-05-20 09:10] LABS: Alkaline Phosphatase 87 U/L (45-117); Phosphorus 1.8 mg/dL (2.5-4.9); Total Protein 6.2 g/dL (6.4-8.2)
[2018-05-20] MEDS ORDERED: Potassium Chloride 25 MEQ Effervescent Tablet PO ONE (09:27)
--- NOTE | 2018-05-20 12:37 | P.PNIM ---
Subjective Interval history: This is a 52-year-old female with no significant PMH who presents the ER after dog bite to left forearm and hand. Patient is acutely intoxicated and belligerent on arrival, now calm after receiving Haldol and Ketamine. Pt was apparently bitten by her own dog, pitbull/boxer mix earlier this evening. Reports dog is up to date on vaccinations. On arrival, BP 178/85, HR 102, O2 sat 96% on RA, Afebrile. WBC 18.6. Chemistry pending. Forearm X-ray with soft tissue injury. On exam. pt noted to have laceration to left hand and metal bracelet embedded into left forearm at site of dog bite. Hand Sx consulted, plan for surgical intervention. 7-16 HAD SURGERY WITH HAD SURGERY ON LEFT HAND YESTERDAY CONTINUE ANTIBIOTICS DW RN AND PT AND CM CONTINUE PT AND OT WILL NEED FOLLOW UP 7-17 WANTS TO GO HOME TODAY STATES NEEDS SLING FOR LEFT ARM DW RN AND PT AND CM DC TO HOME TODAY ON PO ANTIBIOTICS AUGMENTIN PAIN MEDS FOR 3 DAYS ONLY STOP ALCOHOL AND STOP SMOKING Physical Exam Vital signs: Vital Signs 05/19/18 16:00 05/19/18 20:00 05/19/18 21:00 Temperature 99.2 F 98.4 F Pulse Rate 77 85 Respiratory Rate 16 16 Blood Pressure 152/66 H 165/76 H 158/68 H Pulse Oximetry 93 L 95 05/20/18 00:00 05/20/18 04:00 05/20/18 08:00 Temperature 98.6 F 97.9 F 98.5 F Pulse Rate 81 112 H 69 Respiratory Rate 18 20 16 Blood Pressure 153/65 H 126/77 132/71 Pulse Oximetry 95 92 L 95 Intake & Output 05/19/18 05/20/18 05/20/18 18:59 06:59 18:59 Intake Total 2120 / 2120 2450 / 2450 100 / 100 Balance 2120 / 2120 2450 / 2450 100 / 100 Intake: IV 1700 / 1700 2450 / 2450 100 / 100 NS Inj 1,000 ML @ 100 mls/hr IV 1000 / 1000 1999 / 1999 .CONT .Q10H MANNY Rx#:[id number] Unasyn Inj 3 GM In NS Inj 100 200 / 200 200 / 200 100 / 100 ML @ 200 mls/hr IV.SIG Q6H MANNY Rx#:[id number] Vancomycin Inj 900 MG In NS Inj 500 / 500 250 / 250 250 ML @ 250 mls/hr IV.SIG Q12H MANNY Rx#:[id number] Oral 420 / 420 Other: # Voids 5 Date of Last Bowel Movement 05/20/18 # Bowel Movements 2 1 Narrative: GENERAL: AWAKE ALERT AND ORIENTED X3 TALKATIVE AND SOMEWHAT COOPERATIVE--WANTS TO GO HOME SKIN: Warm and dry.LEFT AND RIGHT HANDS ARE DRESSED- MULTIPLE SMALL WOUNDS ON LOWER EXTREMITIES HEAD: Atraumatic. Normocephalic. EYES: Pupils equal and round. No scleral icterus. No injection or drainage. ENT: No nasal bleeding or discharge. Mucous membranes pink and moist. NECK: Trachea midline. No JVD. CARDIOVASCULAR: Regular rate and rhythm. S1, S2 NO S3 OR SR RESPIRATORY: No accessory muscle use. Clear to auscultation. Breath sounds equal bilaterally. GASTROINTESTINAL: Abdomen soft, non-tender, nondistended. Hepatic and splenic margins not palpable. MUSCULOSKELETAL: Extremities without clubbing, cyanosis, or edema. No obvious deformities. BL HANDS DRESSED NEUROLOGICAL: Awake and alert. No obvious cranial nerve deficits. Motor grossly within normal limits. 4 out of 5 muscle strength in the arms 5/5 IN LEGSand legs. Normal speech. PSYCHIATRIC: Appropriate mood and affect; insight and judgment normal. Results - Labs CBC & Chem 7: 05/20/18 07:49 05/20/18 07:49 Laboratory Results - last 24 hr 05/19/18 05/19/18 05/20/18 13:49 15:45 07:49 WBC 14.5 H 11.0 RBC 3.96 L 3.51 L Hgb 12.4 10.9 L Hct 37.2 33.0 L MCV 93.7 93.9 MCH 31.3 31.0 MCHC 33.4 33.0 RDW 13.5 13.6 Plt Count 320 302 MPV 8.0 7.4 Neut % (Auto) 80.5 H 76.8 H Lymph % (Auto) 13.5 16.7 [place] % (Auto) 5.4 5.5 Eos % (Auto) 0.2 0.7 Baso % (Auto) 0.4 0.3 Neut # (Auto) 11.7 H 8.5 H Lymph # (Auto) 2.0 1.8 [place] # (Auto) 0.8 0.6 Eos # (Auto) 0.0 0.1 Baso # (Auto) 0.1 0.0 WBC Differential . . Differential Comment Auto diff final Auto diff final PT INR Sodium Potassium Chloride Carbon Dioxide Anion Gap BUN Creatinine Estimated GFR Random Glucose Calcium Phosphorus Magnesium Total Bilirubin AST ALT Alkaline Phosphatase Total Protein Albumin TSH Free T4 Vancomycin Trough 5.8 05/20/18 05/20/18 05/20/18 07:49 07:49 07:49 WBC RBC Hgb Hct MCV MCH MCHC RDW Plt Count MPV Neut % (Auto) Lymph % (Auto) [place] % (Auto) Eos % (Auto) Baso % (Auto) Neut # (Auto) Lymph # (Auto) [place] # (Auto) Eos # (Auto) Baso # (Auto) WBC Differential Differential Comment PT 9.5 L INR 0.9 Sodium 144 Potassium 3.3 L Chloride 109 H Carbon Dioxide 23.0 Anion Gap 12 BUN 8 Creatinine 0.56 Estimated GFR Greater than 89 Random Glucose 82 Calcium 7.9 L Phosphorus 1.8 L Magnesium 2.0 Total Bilirubin 0.6 AST 15 ALT 17 Alkaline Phosphatase 87 Total Protein 6.2 L D Albumin 2.6 L TSH 3.750 H Free T4 1.33 Vancomycin Trough - Procedures 7-15 1. Dog bite with multiple lacerations over left hand and forearm. 2. Retained foreign body, left wrist. POSTOPERATIVE DIAGNOSES: 1. Dog bite with multiple lacerations over left forearm, wrist, and hand. 2. Retained foreign body, left wrist. 3. Partial longitudinal laceration extensor tendon, left hand. PROCEDURES: 1. Removal of retained foreign body, left wrist. 2. Exploration of penetrating wounds, left hand and forearm. 3. Repair of partial laceration to the extensor tendon of the left ring finger. 4. Irrigation and debridement of open wounds including skin, subcutaneous tissue, muscle over the left forearm and left hand. 5. Complex closure of wounds measuring approximately 5 cm left forearm. SURGEON: Lisa Oliveira MD ANESTHESIA: General and local. TOURNIQUET TIME: 2 minutes at 200 mmHg. INDICATIONS FOR PROCEDURE: Malou Armendariz is a 52-year-old right-hand dominant female that sustained multiple lacerations on bilateral upper extremities from a dog bite and the right upper extremity was repaired in the emergency room. The patient was brought to the operating room for removal of the retained foreign body of the left wrist. She also elected to proceed with the exploration of the penetrating wounds, repair of any injured structures and she elected to proceed. Risks were explained, which were not limited to wound complications, infection, stiffness, pain, paresthesias, need for additional surgery and she elected to proceed. DESCRIPTION OF PROCEDURE: The patient was identified in the preoperative holding and the correct extremity was marked. The patient was taken to the operating room. Anesthesia was induced. Left upper extremity was prepped and draped in normal sterile fashion. The bracelet retained metallic foreign body was removed in its entirety without complication. This was confirmed under fluoroscopy. Next, the large wounds over the volar forearm, the ulnar side of the wrist and the dorsum of the hand were extended and explored. Irrigation and debridement was performed using antibiotic saline and rongeurs. There was no injury to any deep structures over the volar forearm or ulnar wrist. There was partial longitudinal laceration of the extensor tendon over the left ring finger, which was repaired with PDS. The remainder of the wounds were closed with Monocryl and Nylon. 2% lidocaine without epinephrine was used for local anesthesia. The patient was placed in a soft dressing and awoken from anesthesia without any complications. She will be discharged on antibiotics per the primary team. She should return to the emergency room for suture removal in approximately 2 weeks. Lisa Oliveira MD Assessment and Plan - Assessment (1) Dog bite Code(s): W54.0XXA - Bitten by dog, initial encounter Status: Acute (2) Alcohol intoxication Code(s): F10.929 - Alcohol use, unspecified with intoxication, unspecified Status: Acute (3) Leukocytosis Code(s): D72.829 - Elevated white blood cell count, unspecified Status: Acute - Plan 1. Dog Bite: s/p dog bite by her dog, reports up to date on vaccinations, + left hand laceration w/ significant swelling and left forearm injury w/ metal bracelet embedded. X-ray w/ soft tissue injury, images reviewed by me. Hand Sx consulted, plan for surgical intervention. NPO, analgesics/antiemetics. Unasyn/Vanc, IVF for hydration. 2. Alcohol Intoxication: gabrielent/uncooperative on arrival, now calm after Haldol/Ketamine, CIWA, Seizure Precautions, MVI/Thiamine/Folate replacement. 3. DVT Prophylaxis: SCD/Teds 4. Social work for d/c planning as needed. WILL NEED HELP WITH ANTIBIOTICS DC TODAY SWITCH TO PO ANTIBIOTICS Code Status: FULL CODE Discussed Condition With: RN AND PT Discharge Planning: DC TO HOME
--- NOTE | 2018-05-20 12:56 | P.DS ---
Date of admission: 05/18/18 02:06 Primary care physician: UNKNOWN Attending physician on discharge: Jose Alonzo Anticipated date of discharge: 05/20/18 Brief History from admission: This is a 52-year-old female with no significant PMH who presents the ER after dog bite to left forearm and hand. Patient is acutely intoxicated and belligerent on arrival, now calm after receiving Haldol and Ketamine. Pt was apparently bitten by her own dog, pitbull/boxer mix earlier this evening. Reports dog is up to date on vaccinations. On arrival, BP 178/85, HR 102, O2 sat 96% on RA, Afebrile. WBC 18.6. Chemistry pending. Forearm X-ray with soft tissue injury. On exam. pt noted to have laceration to left hand and metal bracelet embedded into left forearm at site of dog bite. Hand Sx consulted, plan for surgical intervention. DS: Diagnosis - Discharge Diagnosis (1) Dog bite Status: Acute (2) Alcohol intoxication Status: Acute (3) Leukocytosis Status: Acute DS: Medications - Discharge Medications Prescriptions: amoxicillin-pot clavulanate [Augmentin] 1 tab PO Q12H #28 tab folic acid 1 mg PO DAILY #30 tab evczbdzo-ungf-RN-calcium-mins [Thera M Plus (ferrous fumarat)] 1 tab PO DAILY # 30 tab ypizhqwh-rxjgvxllnYs-uyncpygyA [Triple Antibiotic] 1 applicatio TOPICAL BID #60 g oxycodone-acetaminophen 1 tab PO Q4H PRN #12 tab PRN Reason: pain 5-10 thiamine HCl (vitamin B1) 100 mg PO DAILY #30 tab DS: Summary Hospital Course: This is a 52-year-old female with no significant PMH who presents the ER after dog bite to left forearm and hand. Patient is acutely intoxicated and belligerent on arrival, now calm after receiving Haldol and Ketamine. Pt was apparently bitten by her own dog, pitbull/boxer mix earlier this evening. Reports dog is up to date on vaccinations. On arrival, BP 178/85, HR 102, O2 sat 96% on RA, Afebrile. WBC 18.6. Chemistry pending. Forearm X-ray with soft tissue injury. On exam. pt noted to have laceration to left hand and metal bracelet embedded into left forearm at site of dog bite. Hand Sx consulted, plan for surgical intervention. 05-19 HAD SURGERY WITH HAD SURGERY ON LEFT HAND YESTERDAY CONTINUE ANTIBIOTICS DW RN AND PT AND CM CONTINUE PT AND OT WILL NEED FOLLOW UP 05-20 WANTS TO GO HOME TODAY STATES NEEDS SLING FOR LEFT ARM DW RN AND PT AND CM DC TO HOME TODAY ON PO ANTIBIOTICS AUGMENTIN PAIN MEDS FOR 3 DAYS ONLY STOP ALCOHOL AND STOP SMOKING E-FORCSE CHECKED NO NEW NARCOTICS SINCE DEC 2017 WILL GIVE MEDS SINCE THIS IS AN ACUTE EVENT - Time Spent with Patient Total time spent providing and/or coordinating discharge services: Greater than 30 minutes - Quality: VTE Deep Vein Thrombosis/Pulmonary Embolism Present on Admission: Yes Exam Vital signs: Vital Signs 05/19/18 16:00 05/19/18 20:00 05/19/18 21:00 Temperature 99.2 F 98.4 F Pulse Rate 77 85 Respiratory Rate 16 16 Blood Pressure 152/66 H 165/76 H 158/68 H Pulse Oximetry 93 L 95 05/20/18 00:00 05/20/18 04:00 05/20/18 08:00 Temperature 98.6 F 97.9 F 98.5 F Pulse Rate 81 112 H 69 Respiratory Rate 18 20 16 Blood Pressure 153/65 H 126/77 132/71 Pulse Oximetry 95 92 L 95 Intake & Output 05/19/18 05/20/18 05/20/18 18:59 06:59 18:59 Intake Total 2120 / 2120 2450 / 2450 100 / 100 Balance 2120 / 2120 2450 / 2450 100 / 100 Intake: IV 1700 / 1700 2450 / 2450 100 / 100 NS Inj 1,000 ML @ 100 mls/hr IV 1000 / 1000 2000 / 2000 .CONT .Q10H MANNY Rx#:[id number] Unasyn Inj 3 GM In NS Inj 100 200 / 200 200 / 200 100 / 100 ML @ 200 mls/hr IV.SIG Q6H MANNY Rx#:[id number] Vancomycin Inj 900 MG In NS Inj 500 / 500 250 / 250 250 ML @ 250 mls/hr IV.SIG Q12H MANNY Rx#:[id number] Oral 420 / 420 Other: # Voids 5 Date of Last Bowel Movement 05/20/18 # Bowel Movements 2 1 Narrative: GENERAL: AWAKE ALERT AND ORIENTED X3 TALKATIVE AND SOMEWHAT COOPERATIVE--WANTS TO GO HOME SKIN: Warm and dry.LEFT AND RIGHT HANDS ARE DRESSED- MULTIPLE SMALL WOUNDS ON LOWER EXTREMITIES HEAD: Atraumatic. Normocephalic. EYES: Pupils equal and round. No scleral icterus. No injection or drainage. ENT: No nasal bleeding or discharge. Mucous membranes pink and moist. NECK: Trachea midline. No JVD. CARDIOVASCULAR: Regular rate and rhythm. S1, S2 NO S3 OR SR RESPIRATORY: No accessory muscle use. Clear to auscultation. Breath sounds equal bilaterally. GASTROINTESTINAL: Abdomen soft, non-tender, nondistended. Hepatic and splenic margins not palpable. MUSCULOSKELETAL: Extremities without clubbing, cyanosis, or edema. No obvious deformities. BL HANDS DRESSED NEUROLOGICAL: Awake and alert. No obvious cranial nerve deficits. Motor grossly within normal limits. 4 out of 5 muscle strength in the arms 5/5 IN LEGSand legs. Normal speech. PSYCHIATRIC: Appropriate mood and affect; insight and judgment normal. Results Procedures completed during hospitalization: 05-18 1. Dog bite with multiple lacerations over left hand and forearm. 2. Retained foreign body, left wrist. POSTOPERATIVE DIAGNOSES: 1. Dog bite with multiple lacerations over left forearm, wrist, and hand. 2. Retained foreign body, left wrist. 3. Partial longitudinal laceration extensor tendon, left hand. PROCEDURES: 1. Removal of retained foreign body, left wrist. 2. Exploration of penetrating wounds, left hand and forearm. 3. Repair of partial laceration to the extensor tendon of the left ring finger. 4. Irrigation and debridement of open wounds including skin, subcutaneous tissue, muscle over the left forearm and left hand. 5. Complex closure of wounds measuring approximately 5 cm left forearm. SURGEON: Lisa Oliveira MD ANESTHESIA: General and local. TOURNIQUET TIME: 2 minutes at 200 mmHg. INDICATIONS FOR PROCEDURE: Malou Armendariz is a 52-year-old right-hand dominant female that sustained multiple lacerations on bilateral upper extremities from a dog bite and the right upper extremity was repaired in the emergency room. The patient was brought to the operating room for removal of the retained foreign body of the left wrist. She also elected to proceed with the exploration of the penetrating wounds, repair of any injured structures and she elected to proceed. Risks were explained, which were not limited to wound complications, infection, stiffness, pain, paresthesias, need for additional surgery and she elected to proceed. DESCRIPTION OF PROCEDURE: The patient was identified in the preoperative holding and the correct extremity was marked. The patient was taken to the operating room. Anesthesia was induced. Left upper extremity was prepped and draped in normal sterile fashion. The bracelet retained metallic foreign body was removed in its entirety without complication. This was confirmed under fluoroscopy. Next, the large wounds over the volar forearm, the ulnar side of the wrist and the dorsum of the hand were extended and explored. Irrigation and debridement was performed using antibiotic saline and rongeurs. There was no injury to any deep structures over the volar forearm or ulnar wrist. There was partial longitudinal laceration of the extensor tendon over the left ring finger, which was repaired with PDS. The remainder of the wounds were closed with Monocryl and Nylon. 2% lidocaine without epinephrine was used for local anesthesia. The patient was placed in a soft dressing and awoken from anesthesia without any complications. She will be discharged on antibiotics per the primary team. She should return to the emergency room for suture removal in approximately 2 weeks. Lisa Oliveira MD Labs on day of discharge: Labs from last 24 hours 05/20/18 05/20/18 05/20/18 07:49 07:49 07:49 WBC RBC Hgb Hct MCV MCH MCHC RDW Plt Count MPV Neut % (Auto) Lymph % (Auto) [place] % (Auto) Eos % (Auto) Baso % (Auto) Neut # (Auto) Lymph # (Auto) [place] # (Auto) Eos # (Auto) Baso # (Auto) WBC Differential Differential Comment PT 9.5 L INR 0.9 Sodium 144 Potassium 3.3 L Chloride 109 H Carbon Dioxide 23.0 Anion Gap 12 BUN 8 Creatinine 0.56 Estimated GFR Greater than 89 Random Glucose 82 Calcium 7.9 L Phosphorus 1.8 L Magnesium 2.0 Total Bilirubin 0.6 AST 15 ALT 17 Alkaline Phosphatase 87 Total Protein 6.2 L D Albumin 2.6 L TSH 3.750 H Free T4 1.33 Vancomycin Trough 05/20/18 05/19/18 05/19/18 07:49 15:45 13:49 WBC 11.0 14.5 H RBC 3.51 L 3.96 L Hgb 10.9 L 12.4 Hct 33.0 L 37.2 MCV 93.9 93.7 MCH 31.0 31.3 MCHC 33.0 33.4 RDW 13.6 13.5 Plt Count 302 320 MPV 7.4 8.0 Neut % (Auto) 76.8 H 80.5 H Lymph % (Auto) 16.7 13.5 [place] % (Auto) 5.5 5.4 Eos % (Auto) 0.7 0.2 Baso % (Auto) 0.3 0.4 Neut # (Auto) 8.5 H 11.7 H Lymph # (Auto) 1.8 2.0 [place] # (Auto) 0.6 0.8 Eos # (Auto) 0.1 0.0 Baso # (Auto) 0.0 0.1 WBC Differential . . Differential Comment Auto diff final Auto diff final PT INR Sodium Potassium Chloride Carbon Dioxide Anion Gap BUN Creatinine Estimated GFR Random Glucose Calcium Phosphorus Magnesium Total Bilirubin AST ALT Alkaline Phosphatase Total Protein Albumin TSH Free T4 Vancomycin Trough 5.8 - Impressions ITS Impressions Forearm X-Ray 05/17/18 19:50 CONCLUSION: Soft tissue injury. Wrist X-Ray 05/18/18 00:00 CONCLUSION: Postsurgical changes as above. Discharge Plan - Discharge Disposition Patient Disposition: 01 Discharge Home - Discharge Condition Condition: Good - Discharge Order Discharge Orders: Discharge Order (Routine); Ordered 05/20/18 Ordered By: Jose Alonzo Hand Surgery Clear for Discharge (Routine); Ordered 05/18/18 Ordered By: Lisa Oliveira - Discharge Details Anticipated Discharge Date: 05/20/18 - Physicians Team Primary Care Provider: UNKNOWN, Attending Provider: Jose Alonzo Other Providers: Lisa Oliveira MD
[2018-05-21] MEDS ORDERED: Pharmacy Ordered Lab Info OTHER ONE (15:45)
== END 2018-05-20 15:18 | disposition home or self-care (01) ==
LOC: NEPC 19:40 → NEDA 05-18 02:06 → N04 05-18 03:15
PROVIDERS: ADMIT Hospitalist; ATTEND Hospitalist
DX: F10.929 Alcohol use, unspecified with intoxication, unspecified; S61.215A Laceration without foreign body of left ring finger without damage to nail, initial encounter; S51.812A Laceration without foreign body of left forearm, initial encounter; S61.522A Laceration with foreign body of left wrist, initial encounter; F17.210 Nicotine dependence, cigarettes, uncomplicated; S51.852A Open bite of left forearm, initial encounter; D72.829 Elevated white blood cell count, unspecified; W54.0XXA Bitten by dog, initial encounter